=== PATIENT | male | born 1945 | race Caucasian/White ===

== ENCOUNTER 2023-02-23 09:00 | Day surgery (SDC) | payer OTHER, SELFPAY ==
[2023-02-23] VITALS (10 sets, daily range): BP systolic 130–152; BP diastolic 72–84; PULSE 75–83; RESP 11–21; TEMP 36.1–36.4; O2SAT 90–96; BMI 33.6
--- NOTE | 2023-02-23 09:07 | ECG_ITS ---
[facility] Test Date: 2023-02-23 Pat Name: Bong Scott Department: Room: Gender: Male Inspector Mechanical: : 1945 Requested By: Farrah Kinney Order Number: [id number] Pierce MD: Alfonso Mosquera M.D. Measurements Intervals [place] Rate: 83 P: 32 [place]: 168 QRS: 25 QRSD: 173 T: 17 QT: 390 QTc: 459 Interpretive Statements SINUS RHYTHM RIGHT BUNDLE BRANCH BLOCK [120+ ms QRS DURATION, UPRIGHT V1, 40+ ms S IN I/aVL/V4/V5/V6] No previous ECG available for comparison Electronically Signed On 02-23-2023 23:25:01 ELECTRICAL WORKER by Alfonso Mosquera M.D. [id number]
[2023-02-23] MEDS: sodium chloride 0.9% 1,000 ML 30 ML IV (09:37)
--- NOTE | 2023-02-23 09:52 | W.PM.OPSUD ---
Surgery/Procedure H&P Update DATE OF PROCEDURE: February 23, 2023 DATE H&P PERFORMED: 02/10/23 H&P UPDATE INFORMATION: I have reviewed H&P completed within last 30 days, I have examined patient prior to procedure, No changes to prior documentation and H&P is in [facility] EMR on date indicated PLANNED PROCEDURE: Operation Date: 02/23/23 10:45 Proposed Procedures p Right wrist carpal tunnel release 32532,G56.01(Right) - Mariely Angel MD Related Problem List Diagnoses (1) Carpal tunnel syndrome of right wrist:
[2023-02-23 10:01] LABS: Blood Urea Nitrogen 26 mg/dL (8-23); Calcium 9.9 mg/dL (8.5-10.5); Carbon Dioxide 29 mmol/L (22-29); Chloride 105 mmol/L (98-107); Glucose 109 mg/dL (65-115); Osmolality Calculated 299 mOsm/kg (285-295); Sodium 142 mmol/L (136-145)
[2023-02-23 10:15] LABS: Creatinine Clr Calc Pharmacy 52.9502
[2023-02-23 10:16] LABS: Anion Gap 12.2 (5-19); Potassium 4.2 mmol/L (3.5-5.1)
[2023-02-23] MEDS: ceFAZolin 2,000 MG in sodium chloride 0.9% (plus) 50 ML 100 MG IV (10:26)
--- NOTE | 2023-02-23 11:03 | PC.NURSE ---
anesthesia time different then room time due to EKG interpretation
[2023-02-23] MEDS: BUPivacaine 0.5% INJ 30 mL INJECTION (11:10)
--- NOTE | 2023-02-23 11:27 | P.OP_ITS ---
Operative Report Date of procedure: February 23, 2023 Pre-op diagnosis: Right carpal tunnel syndrome Post-op diagnosis: Right carpal tunnel syndrome Post-op findings: Significant compression across the median nerve Procedure done: Right carpal tunnel release Specimens removed/disposition: None Surgeon: Mariely Angel MD [employer] Developer: None Anesthesia: General (Per LMA, ASA 3) Estimated blood loss (mL): 2 Tourniquet time (min): 21 (At 250 mmHg) IV fluids (mL): 200 Urine output (mL): 0 (No Ortiz) Complications: None Condition: stable Disposition: PACU (Then return to same-day surgery for discharge to home) Brief History: This 77-year-old gentleman presented with complaints of severe numbness and tingling in both hands. The right hand was noted to be worse. He underwent nerve conduction studies which demonstrated findings consistent with bilateral carpal tunnel syndrome with the right more significant than the left. After discussion, the patient wished to proceed with carpal tunnel release. Risks and complications were discussed. Questions were answered, and consents were signed. Procedure: The patient was brought to the operating theater. The patient had a general anesthetic per LMA, ASA 3.? After exsanguination of the arm, the tourniquet was elevated to 250 mmHg for a total tourniquet time of 21 minutes. The patient was also given Ancef 2 g preoperatively. The arm was then prepped and draped with DuraPrep in usual fashion with the arm draped free. A surgical pause was performed. At the time, the surgical pause, we confirmed the site and side of surgery. We also confirmed the patient's identity, appropriate and timely administration of preoperative antibiotics and preoperative surgical markings. An incision was then made along the thenar crease. The incision crossed the wrist joint in a curvilinear fashion. Dissection continued through skin and soft tissues using a scalpel. The palmaris longus was identified along with the transverse carpal ligament. Each of these was released carefully to avoid injury to the median nerve. We were able to dissect gently into the carpal canal which was noted to be quite tight with significant compression across the median nerve. The nerve was visualized and was an hourglass shape. The canal was sub sequently palpated to assure there was no bony encroachment upon the canal. There was a quite thickened fibrous tissue within the canal, and this was opened longitudinally as well. The canal was then palpated distally and proximally to assure that my small finger was passed easily without impingement. Finding this to be so, attention was directed to closure. The wound was irrigated with ropivacaine plain. It was then closed with 3-0 nylon in an interrupted mattress fashion. Sterile dressing was then placed consisting of Dermabond, OpSite, fluffed fluffs, sterile soft roll, and an Gasper wrap. The tourniquet was released after 21 minutes. There were no complications. There were no specimens. The procedure was well tolerated. Plan is the patient will be discharged home. Related Problem List Diagnoses (1) Carpal tunnel syndrome of right wrist:
--- NOTE | 2023-02-23 11:30 | PC.NURSE ---
1129 - oral airway out per pt - simple mask at [address]
--- NOTE | 2023-02-23 12:55 | ANE.PACU2 ---
Inpatient post-anesthesia follow up: Airway intact: Yes Vital signs: Temperature 97.5 F Pulse Rate 82 Respiratory Rate 18 Blood Pressure 152/82 Pulse Oximetry 92 Oxygen Delivery Me thod Room Air Oxygen Flow Rate 6 Fraction of Inspir ed Oxygen Hydration adequate: Yes Nausea and vomiting: No Pain level: 1 Mental status: Baseline
== END 2023-02-23 12:55 | disposition home or self-care (01) ==
PROVIDERS: Anesthesiology; PCP Nurse Practitioner Family; Visit Provider Specialist
PROC: (CPT 64721; principal; 2023-02-23 10:35)
DX: G56.01 Carpal tunnel syndrome, right upper limb (principal); I10 Essential (primary) hypertension; E78.5 Hyperlipidemia, unspecified
CPT/HCPCS: 64721; 36415; 80048; 93005; J0690; J1100; J2405; J2704; J3010; J3490; J7030

== ENCOUNTER → 2023-03-26 08:01 | Day surgery (SDC) | payer MEDICARE, SELFPAY ==
[2023-03-26] VITALS (11 sets, daily range): BP systolic 106–147; BP diastolic 68–92; PULSE 75–89; RESP 10–18; TEMP 36.1–36.6; O2SAT 92–96; BMI 31.7
[2023-03-26] MEDS: CELEcoxib 200 mg Capsule 400 MG PO (08:40)
[2023-03-26] MEDS: gabapentin 300 mg Capsule PO (08:40)
[2023-03-26] MEDS: acetaminophen 1,000 MG/100 ML PIGGYBACK 400 MG IV (08:41)
[2023-03-26] MEDS: sodium chloride 0.9% 1,000 ML 30 ML IV (08:56)
--- NOTE | 2023-03-26 09:06 | ANES.PREANE2 ---
Pre-Anesthetic Assessment Height/Weight: Height 1.75 m Weight 97.522 kg Temp Pulse Resp BP Pulse Ox O2 Del Method 97.2 F L 80 18 147/92 96 Room Air 03/26/23 08:31 03/26/23 08:31 03/26/23 08:31 03/26/23 08:31 03/26/23 08:31 03/26/23 08:31 Operation Date: 03/26/23 09:50 Proposed Procedures p Carpal Tunnel Release(Left) - Mariely Angel MD Familial anesthetic complications: none Was Beta Rico taken within 24 hours: N/A Was Clonidine taken within 24 hours: N/A Last intake: Intake Last Liquid Date 03/25/23 Last Liquid Time 23:00 Last Solid Date 03/25/23 Last Solid Time 18:30 Social No alcohol and No tobacco Exam alert, oriented x 3, clear to auscultation bilaterally and regular rate & rhythm Airway Mallampati: Class III Dentition: full CV/HEM Hypertension Metabolic Hyperlipidemia Anesthetic Plan ASA status: 2 Anesthesia: General Risk of > 500 ml blood loss (7ml/kg in children): No Medications/Allergies Home Medications Medication Instructions Recorded Confirmed Last Taken Type B-complex with vitamin C (Super B 1 tab PO DAILY 05/02/20 03/25/23 03/25/23 History Complex-Vitamin C tablet) atorvastatin 20 mg tablet 20 mg PO DAILY 05/02/20 03/25/23 03/25/23 History cholecalciferol (vitamin D3) 10 10 mcg PO DAILY 05/02/20 03/25/23 03/26/23 History mcg/drop (400 unit/drop) oral drops (Baby Vitamin D3) diazepam 2 mg tablet 2 mg PO TID PRN Bladder Spasms 05/02/20 03/25/23 03/26/23 History loratadine 10 mg capsule 10 mg PO DAILY 05/02/20 03/25/23 03/26/23 History meloxicam 15 mg tablet 15 mg PO DIRECTED 05/02/20 03/25/23 02/20/23 History nifedipine 60 mg tablet,extended 60 mg PO DAILY 05/02/20 03/25/23 03/25/23 History release 24 hr triamterene 37.5 1 tab PO DAILY 05/02/20 03/25/23 03/26/23 History mg-hydrochlorothiazide 25 mg tablet oxybutynin chloride 5 mg tablet 5 mg PO DAILY 03/10/23 03/25/23 Unknown History Allergies Allergy/AdvReac Type Severity Reaction Status Date / Time No Known Allergies Allergy Verified 03/25/23 12:33 Current Medications Generic Name Dose Route Start Last Admin Trade Name Freq PRN Reason Stop Dose Admin Sodium Chloride 1,000 mls @ 30 mls/hr 03/26/23 08:45 03/26/23 08:56 Sodium Chloride 0.9% IV 03/27/23 08:44 30 mls/hr .Q24H ALINE Administration PFSH Anesthesia Medical History (Updated 03/14/23 @ 19:52 by RORY Blandon) Carpal tunnel syndrome of left wrist Carpal tunnel syndrome of right wrist HTN (hypertension) Hyperlipidemia Acute arthritis Surgical History (Updated 03/14/23 @ 19:52 by RORY Blandon) Status post carpal tunnel release History of ear surgery Family History Other Cancer Social History Smoking and tobacco/nicotine status: never used tobacco/nicotine Alcohol intake: never Data Anesthesia Cardiac Studies: No Data to Display
--- NOTE | 2023-03-26 10:13 | P.HPUD_ITS ---
Surgery/Procedure H&P Update DATE OF PROCEDURE: March 26, 2023 DATE H&P PERFORMED: 03/10/23 H&P UPDATE INFORMATION: I have reviewed H&P completed within last 30 days, I have examined patient prior to procedure, No changes to prior documentation and H&P is in [facility] EMR on date indicated PLANNED PROCEDURE: Operation Date: 03/26/23 09:50 Proposed Procedures p Carpal Tunnel Release(Left) - Mariely Angel MD Related Problem List Diagnoses (1) Carpal tunnel syndrome of left wrist:
[2023-03-26] MEDS: ceFAZolin 2,000 MG in sodium chloride 0.9% (plus) 50 ML 100 MG IV (10:20)
[2023-03-26] MEDS: BUPivacaine 0.5% INJ 30 mL INJECTION (10:50)
--- NOTE | 2023-03-26 11:31 | PC.NURSE ---
1131 - lma out per this nurse per pt responsiveness - simple mask at [address]
--- NOTE | 2023-03-26 11:45 | P.OP_ITS ---
Operative Report Date of procedure: March 26, 2023 Pre-op diagnosis: Left carpal tunnel syndrome Post-op diagnosis: Left carpal tunnel syndrome Post-op findings: Significant compression across the median nerve Procedure done: Left carpal tunnel release Specimens removed/disposition: None Surgeon: Mariely Angel MD Remediation Technician: None Anesthesia: General (Per LMA, ASA 2) Estimated blood loss (mL): 2 Tourniquet time (min): 20 (At 250 mmHg) IV fluids (mL): 700 Urine output (mL): 0 (No Ortiz) Complications: None Condition: stable Disposition: same day Brief History: This is an established 77-year-old gentleman who presented to the office following right carpal tunnel release complaining of significant left carpal t unnel symptoms. These have been present prior to his right carpal tunnel release. After discussion, the patient wished to proceed with left carpal tunnel release as soon as possible. Risks and complications were discussed with him. Consents were signed in the office. Questions were answered. Procedure: The patient was brought to the operating theater. The patient was administered a general anesthesia per LMA, ASA 2. The tourniquet was elevated to 250 mmHg for a total tourniquet time of 20 minutes. The patient was also given Ancef 2 g pre operatively. The arm was then prepped and draped with DuraPrep in usual fashion with the arm draped free. A surgical pause was performed. At the time, the surgical pause, we confirmed the site and side of surgery. We also confirmed the patient's identity, appropriate and timely administration of preoperative antibiotics and preoperative surgical markings. An incision was then made along the thenar crease. The incision crossed the wrist joint in a curvilinear fashion. Dissection continued through skin and soft tissues using a scalpel. The palmaris longus was identified along with the transverse carpal ligament. Each of these was released carefully to avoid injury to the median nerve. We were able to dissect gently into the carpal canal which was noted to be quite tight with significant compression across the median nerve. The nerve was visualized and was an hourglass shape. After release, the canal was subsequently palpated to assure there was no bony encroachment upon the canal. There was a quite thickened fibrous tissue within the canal, and this was opened longitudinally as well. The canal was then palpated distally and proximally to assure that my small finger was passed easily without impingement. Finding this to be so, attention was directed to closure. The wound was irrigated with ropivacaine plain. It was then closed with 3-0 nylon in an interrupted mattress fashion. Sterile dressing was then placed consisting of Dermabond, OpSite, fluffed fluffs, sterile soft roll, and an Gasper wrap. The tourniquet was released after 20 minutes. There were no complications. There we re no specimens. The procedure was well tolerated. Plan is the patient will be discharged home. Related Problem List Diagnoses (1) Carpal tunnel syndrome of left wrist:
--- NOTE | 2023-03-26 14:53 | ANE.PACU2 ---
Inpatient post-anesthesia follow up: Airway intact: Yes Vital signs: Temperature 97.8 F Pulse Rate 78 Respiratory Rate 18 Blood Pressure 136/78 Pulse Oximetry 92 Oxygen Delivery Me thod Room Air Oxygen Flow Rate 6 Fraction of Inspir ed Oxygen Hydration adequate: Yes Nausea and vomiting: No Pain level: 1 Mental status: Baseline
== END | disposition home or self-care (01) ==
PROVIDERS: PCP Nurse Practitioner Family; Visit Provider Specialist
PROC: (CPT 64721; principal; 2023-03-26 09:40)
DX: G56.02 Carpal tunnel syndrome, left upper limb (principal); I10 Essential (primary) hypertension; E78.5 Hyperlipidemia, unspecified
CPT/HCPCS: 64721; J0131; J0690; J1100; J2405; J2704; J3010; J3490; J7030

== ENCOUNTER → 2023-04-08 08:46 | Outpatient (BNVA) | payer MEDICARE, SELFPAY | PROVIDERS: PCP Nurse Practitioner Family; Visit Provider Specialist | DX: G56.02 Carpal tunnel syndrome, left upper limb (principal); Z98.890 Other specified postprocedural states | CPT/HCPCS: 99024 ==

== ENCOUNTER 2023-06-04 13:10 | Emergency (ER) | payer MEDICARE, SELFPAY ==
[2023-06-04 13:13] VITALS: BP 176/92; PULSE 92; RESP 16; TEMP 36.8; O2SAT 94
--- NOTE | 2023-06-04 13:27 | ED_ITS ---
HPI - Abdominal Pain 2 General: Chief Complaint: Abdominal Pain Stated Complaint: abd pain Time Seen by Provider: 06/04/23 13:14 History of Present Illness: Patient presents with pelvic pain that is moved up to his lateral left upper quadrant. Patient describes his pain as sharp and stabbing. There is nothing the patient to do that makes this pain better or worse. Patient denies any dysuria frequency hematuria fever or chills, patient does state he has nausea with dry heaving and some mild diarrhea. This been going on for about 3 days and getting worse. Patient has not had any surgeries on his belly and has not had any symptoms like this before. Patient is tried [id number] Tylenol that did not work he then used some old hydrocodone he has at home, this worked for a couple hours but then the pain came back. Review of Systems 2 General: Reports: 10 or more systems reviewed and unremarkable except in HPI and below PFSH ED 2 PFSH: Medical History Carpal tunnel syndrome of left wrist Carpal tunnel syndrome of right wrist HTN (hypertension) Hyperlipidemia Acute arthritis Surgical History Status post carpal tunnel release History of ear surgery Family History Other Cancer Social History Smoking and tobacco/nicotine status: never used tobacco/nicotine Alcohol intake: never Physical Exam 2 Const: COMMON NORMALS: no acute distress, average body habitus, patient oriented x3, no limitations, healthy appearing, alert and well nourished HENMT: COMMON NORMALS: normocephalic, atraumatic, hearing grossly normal bilaterally, external ears normal, Normal external nose present, moist oral mucous membranes and oropharynx normal HEAD & SCALP: normocephalic and atraumatic NOSE: Normal external nose present EXTERNAL EAR: Yes external ears normal Neck/C-Spine: COMMON NORMALS: no JVD Chest: COMMONS NORMALS: normal inspection of the chest and normal palpation of entire chest wall Resp: COMMON NORMALS: normal respiratory effort, No retractions, No use of accessory muscles and clear to auscultation bilaterally AUSCULTATION: clear to auscultation bilaterally Cardio: COMMON NORMALS: no JVD, regular rate, regular rhythm, S1 normal heart sound present, S2 normal heart sound present, No gallops present (Cardio), No clicks present (Cardio), No murmurs present (Cardio) and No rub (Cardio) R ATE: regular rate RHYTHM: regular rhythm HEART SOUNDS: S1 normal heart sound present and S2 normal heart sound present GI: COMMON NORMALS: Normal to inspection, nondistended, normoactive bowel sounds present, Soft to palpation, No hepatosplenomegaly present and no masses; negative for non-tender (Mild tenderness to with deep palpation of lateral left upper quadrant abdom) PALPATION: Yes Soft to palpation and Yes No hepatosplenomegaly present Neuro: COMMON NORMALS: patient oriented x3 SENSORIUM/ORIENTATION: Yes alert Course 2 Vital Signs: Vital signs: Vital Signs Temperature 98.2 F 06/04/23 13:13 Pulse Rate 92 06/04/23 13:13 Respiratory Rate 16 06/04/23 13:13 Blood Pressure 176/92 06/04/23 13:13 Pulse Oximetry 94 06/04/23 13:13 Oxygen Delivery Me thod Room Air 06/04/23 13:13 MDM - Abdominal Pain Medical Decision Making Patient was worked up with lab work as well as noncontrast CT scan of the abdomen pelvis. This showed his BUN/creatinine was significantly elevated from prior it is now 39 and 2.6, and CT scan showed a approximately 4 mm stone in the distal one third of the left ureter. Patient be given hydrocodone, Zofran, patient is already on Flomax. Patient will be referred back to his family practice doctor for further evaluation testing and possible referral to urology if needed. Differential Diagnosis Likely abdominal pain; Unlikely acute appendicitis, calculus of kidney, constipation, diverticulitis, endometriosis, gastroenteritis, pancreatitis or small bowel obstruction Medical Records I reviewed the patient's medical records. Lab Data I reviewed the patient's lab results. 06/04/23 13:44 06/04/23 13:44 Labs/Radiology: Laboratory Results WBC 12.15 10^3/uL (3.29-11.43) H 06/04/23 13:44 RBC 5.29 10^6/uL (3.85-5.65) 06/04/23 13:44 Hgb 15.50 g/dL (11.27-16.99) 06/04/23 13:44 Hct 45.4 % (37-53) 06/04/23 13:44 MCV 85.8 fl (82-101) 06/04/23 13:44 MCH 29.3 pg (27-33) 06/04/23 13:44 MCHC 34.1 g/dL (30-55) 06/04/23 13:44 RDW 13.0 % (12.1-15.1) 06/04/23 13:44 Plt Count 238 10^3/cmm (157-399) 06/04/23 13:44 MPV 10.3 fL (7.4-10.4) 06/04/23 13:44 Neut % (Auto) 75.4 % 06/04/23 13:44 Lymph % (Auto) 13.5 % 06/04/23 13:44 [place] % (Auto) 10.0 % 06/04/23 13:44 Eos % (Auto) 0.5 % 06/04/23 13:44 Baso % (Auto) 0.2 % 06/04/23 13:44 Neut # (Auto) 9.15 10^3/uL (1.8-7.7) H 06/04/23 13:44 Lymph # (Auto) 1.6 10^3/uL (0.8-4.8) 06/04/23 13:44 [place] # (Auto) 1.2 10^3/uL (0.2-0.9) H 06/04/23 13:44 Eos # (Auto) 0.1 10^3/uL (0.0-0.8) 06/04/23 13:44 Baso # (Auto) 0.0 10^3/uL (0.0-0.1) 06/04/23 13:44 Nucleated RBC % (auto) 0 % 06/04/23 13:44 Nucleated RBCs # 0.0 /100WBC 06/04/23 13:44 Sodium 133 mmol/L (136-145) L 06/04/23 13:44 Potassium 3.9 mmol/L (3.5-5.1) 06/04/23 13:44 Chloride 98 mmol/L (98-107) 06/04/23 13:44 Carbon Dioxide 25 mmol/L (22-29) 06/04/23 13:44 Anion Gap 13.9 (5-19) 06/04/23 13:44 BUN 39 mg/dL (8-23) H 06/04/23 13:44 Creatinine 2.6 mg/dL (0.7-1.2) H 06/04/23 13:44 GFR Calculation Not Reportable 06/04/23 13:44 Glucose 112 mg/dL (65-115) 06/04/23 13:44 Calculated Osmolality 286 mOsm/kg (285-295) 06/04/23 13:44 Calcium 9.1 mg/dL (8.5-10.5) 06/04/23 13:44 Magnesium 1.8 mg/dL (1.7-2.3) 06/04/23 13:44 Total Bilirubin 1.7 mg/dL (0.15-1.2) H 06/04/23 13:44 AST 17 U/L (0-40) 06/04/23 13:44 ALT 13 U/L (0-41) 06/04/23 13:44 Alkaline Phosphatase 67 U/L (40-130) 06/04/23 13:44 Total Protein 7.4 g/dL (6.6-8.7) 06/04/23 13:44 Albumin 4.0 g/dL (3.5-5.2) 06/04/23 13:44 Globulin 3.4 g/dL (1.3-4.6) 06/04/23 13:44 Lipase 38 U/L (13-60) 06/04/23 13:44 All radiology interpretation(s) finalized by discharge Discharge Plan Discharge Patient Disposition: Home Clinical Impression: Calculus of distal left ureter, Acute kidney insufficiency Nausea & vomiting Qualifiers: Vomiting type: unspecified Qualified Code(s): R11.2 - Nausea with vomiting, unspecified Condition: Stable Prescriptions: New hydrocodone-acetaminophen 5-325 mg tablet 1 tab PO Q6H PRN (Reason: pain) Qty: 14 0RF ondansetron HCl 4 mg tablet 4 mg PO QID PRN (Reason: nausea and vomiting) Qty: 14 0RF No Action nifedipine 60 mg tablet extended release 24hr 60 mg PO BEDTIME diazepam 2 mg tablet 2 mg PO QAM triamterene-hydrochlorothiazid 37.5-25 mg tablet 1 tab PO QAM atorvastatin 20 mg tablet 20 mg PO BEDTIME meloxicam 15 mg tablet 15 mg PO .THREE TIMES A WEEK Rx Instructions: brett trujillo,speedy tamsulosin 0.4 mg capsule 0.4 mg PO QAM vitamin B complex Tablet 1 tab PO BEDTIME Claritin 10 mg Tablet 10 mg PO QAM Vitamin D3 125 mcg (5,000 unit) Tablet 125 mcg PO QAM Men's 50 Plus Multivitamin 400-20-370 mcg Tablet 1 tab PO BEDTIME Discharge Orders: Discharge ED (Routine); Ordered 06/04/23 Ordered By: Reji Calzada Referrals: Shannon Larsen [Primary Care Provider] - 1 week Patient Instructions: Kidney Stones, How to Strain Your Urine (ED), Opioid Safety, Pain Management Activity Restrictions/Additional Instructions: Take all medicine as directed, strain all urine, please follow-up with your family practice doctor within the next 7 days for further evaluation testing especially recheck of your kidney function. If you have any worsening pain uncontrolled nausea vomiting fever chills please return to the ER. Coding Level of Care Code ED International Exchange Coordinator for Bran White
[2023-06-04] MEDS: ketorolac 30 mg/mL INJ IVP (13:50)
[2023-06-04] MEDS: ondansetron 2 mg/ML SDV 2 mL 4 MG IVP (13:50)
[2023-06-04] MEDS: sodium chloride 0.9% 1,000 ML 999 ML IV ×2 (13:50→15:01)
[2023-06-04 13:59] LABS: Basophils % 0.2 %; Eosinophils # 0.1 10^3/uL (0.0-0.8); Eosinophils % 0.5 %; Hematocrit 45.4 % (37-53); Lymphocytes # 1.6 10^3/uL (0.8-4.8); Lymphocytes % 13.5 %; Mean Corpuscular HGB Conc 34.1 g/dL (30-55); Mean Corpuscular Hemoglobin 29.3 pg (27-33); Mean Corpuscular Volume 85.8 fl (82-101); Mean Platelet Volume 10.3 fL (7.4-10.4); Monocytes # 1.2 10^3/uL (0.2-0.9); Neutrophils # 9.15 10^3/uL (1.8-7.7); Neutrophils % 75.4 %; Nucleated Red Blood Cells % 0 %; Platelet Count 238 10^3/cmm (157-399); Red Blood Count 5.29 10^6/uL (3.85-5.65); White Blood Count 12.15 10^3/uL (3.29-11.43)
[2023-06-04 14:11] LABS: Alanine Aminotransferase 13 U/L (0-41); Alkaline Phosphatase 67 U/L (40-130); Anion Gap 13.9 (5-19); Aspartate Amino Transferase 17 U/L (0-40); Blood Urea Nitrogen 39 mg/dL (8-23); Calcium 9.1 mg/dL (8.5-10.5); Carbon Dioxide 25 mmol/L (22-29); Chloride 98 mmol/L (98-107); Globulin 3.4 g/dL (1.3-4.6); Glucose 112 mg/dL (65-115); Lipase 38 U/L (13-60); Magnesium 1.8 mg/dL (1.7-2.3); Osmolality Calculated 286 mOsm/kg (285-295); Potassium 3.9 mmol/L (3.5-5.1); Sodium 133 mmol/L (136-145); Total Bilirubin 1.7 mg/dL (0.15-1.2); Total Protein 7.4 g/dL (6.6-8.7)
--- NOTE | 2023-06-04 14:23 | CT_ITS ---
WS: [id number] CT ABDOMEN PELVIS TECHNIQUE: Noncontrast CT of the abdomen and pelvis with coronal and sagittal reformatted images. CLINICAL INFORMATION: llq abd pain migratd to l flank, n/v, renal failure, COMPARISON: None. DLP: 861.[address] scans at [facility] use at least one of these dose optimization techniques: automated e xposure control; mA and/or kV adjustment per patient size (includes targeted exams where dose is matc hed to clinical indication); or iterative reconstruction. FINDINGS: Mild LEFT hydronephrosis. Obstructing calculus in the distal one third ureter at the pelvic brim portia uring approximately 4.3 mm. Mild inflammatory stranding and induration about the LEFT ureter. Mild in flammatory stranding and edema about the LEFT kidney. No hydronephrosis in the RIGHT kidney. RIGHT ureter is decompressed. Noncontrast liver is normal. Small esophageal hiatal hernia. Splenic granulomas. Slight subsegmental atelectasis in the lung bases. Noncontrast pancreas appears normal. Markedly enlarged prostate measuring 5.4 x 6.2 cm with indentation on the bladder. Recommend correlat ion PSA. Thickening of the seminal vesicles. Sigmoid diverticulosis. No evidence of acute diverticuli tis. Normal appendix in the RIGHT lower quadrant. Tiny fat-containing umbilical hernia. Normal lumbar spine. IMPRESSION: 1. Obstructing 4.3 mm calculus at the distal one third ureter with mild LEFT hydronephrosis. Mild in flammatory stranding and edema about the LEFT kidney. 2. No hydronephrosis in the RIGHT kidney. 3. Markedly enlarged prostate measuring 6.2 x 5.4 cm with thickening of the seminal vesicles. Findin gs suspicious for neoplasia/hyperplasia. Recommend correlation PSA. 4. Sigmoid diverticulosis. 5. Small esophageal hiatal hernia.
--- NOTE | 2023-06-04 14:58 | PC.PHAR ---
pts verified the pts medications-pts states the pt is taking diazepam 2mg qam ext shows last filled 2mg po q8h prn filled 08/28/22 30d/s-pts states they dced the oxybutynin 5mg daily filled 12/21/22 100d/s pts states they havent told the dr that they dced-pts states the pt takes mobic 15mg three times a week ext shows last filled 11/30/22 90d/s 15mg daily
== END 2023-06-04 15:52 | disposition home or self-care (01) ==
PROVIDERS: Emergency Provider Emergency Medicine; PCP Nurse Practitioner Family
DX: N20.1 Calculus of ureter (principal); N28.9 Disorder of kidney and ureter, unspecified; R11.2 Nausea with vomiting, unspecified; I10 Essential (primary) hypertension; E78.5 Hyperlipidemia, unspecified
CPT/HCPCS: 74176; 80053; 83690; 83735; 85025; 96374; 96375; 99285; J1885; J2405; J7030